=== PATIENT | male | born 1930 ===

== ENCOUNTER 2017-04-20 13:18 | Inpatient (IN) | payer MEDICARE ==
[~2017-04-20] VITALS: Ht 167.6 cm; Wt 50.0 kg
--- NOTE | ~2017-04-20 | ECH ---
Transthoracic Echocardiography Report (TTE) Demographics Patient Name UYEN TATUM Date of Study 04/21/2017 Patient Number [id number] Visit Number [id number] Date of 1930 Room Number 402 Accession Number [id number] Gender Male Age 86 year(s) Referring Michele Child Apartment House Manager Hannah Salomon [facility] Physician Randolph Jane MD Physician Interpreting Jorge Hayden Composing Room Machinist Apprentice Physician Supervising Ordering Physician Michele Child MD/P Nurse Stress Orchid Transplanter Conclusions Summary Technically adequate exam. The estimated left ventricular ejection fraction is 45%. Mild segmental wall motion abnormalities noted. Mild septal left ventricular hypertrophy. Mild mitral regurgitation by color Doppler. There is mild pulmonary hypertension. The pulmonary pressure (RVSP) is 42 mmHg. Trivial pulmonic valve regurgitation by color Doppler. Small pericardial effusion. Procedure Type of Study TTE procedure:Echo Complete SF. Procedure Date Date: 04/21/2017 Start: 07:29 AM Technical Quality: Adequate visualization Indications:Congestive heart failure and Hypertension. Additional Indications:ELevated proBNP, ESRD Appropriate Use Criteria: 9 Height: 66 inches Weight: 122 pounds BSA: 1.62 m Rhythm: Within normal limits HR: 67 bpm BP: 142/70 mmHg M-Mode/2D Measurements LV Diastolic Dimension: 4.9 cm LV Systolic Dimension: 3.92 cm LV Septum Diastolic: 1.13 cm LV PW Diastolic: 1.03 cm AO Root Dimension: 2.38 cm Cardiac Output: 2.19 l/min LA Dimension: 3.99 cm Cardiac Index: 1.35 l/min*m RV Diastolic Dimension: 2.9 cm LA volume index: 32 ml/m LVOT: 1.76 cm LVOT VTI: 13.47 cm RV Base: 2.7 cm LV Stroke volume: 32.75 ml RV Mid: 2.2 cm LV Stroke volume index: 20.22 ml/m RV Length: 6.2 cm TAPSE: 3.3 cm TDI-S': 12 cm/s Doppler Measurements AV Peak Velocity: 1.1 m/s MV Peak E-Wave: 0.88 m/s AV Peak Gradient: 4.84 mmHg MV Peak A-Wave: 0.57 m/s AV Mean Gradient: 2.88 mmHg MV E/A Ratio: 1.56 LVOT Peak Velocity: 0.61 m/s MV P1/2t: 61.7 msec AV Area (Continuity):1.51 cm MV Deceleration Time: 211.3 msec TR Velocity:3.11 m/s MV Area (PHT): 3.57 cm TR Gradient:38.69 mmHg PV Peak Velocity: 1 m/s Estimated RAP:3 mmHg PV Peak Gradient: 3.99 mmHg Estimated RVSP: 42 mmHg Estimated PASP: 41.69 mmHg E' Septal Velocity: 0.4 m/s A' Septal Velocity: 0.8 m/s E' Lateral Velocity: 0.7 m/s A' Lateral Velocity: 0.6 m/s RA Area: 14.1 cm Findings Left Ventricle The left ventricle is normal in size . Mild septal left ventricular hypertrophy. Diastolic assessment reveals normal relaxation. Right Ventricle Normal right ventricle structure and function. Left Atrium Normal left atrial size. Right Atrium Normal right atrial size. Mitral Valve Mild thickening of the mitral valve leaflets. Mild mitral regurgitation by color Doppler. Aortic Valve The aortic valve is mildly sclerotic. There is no aortic regurgitation by color Doppler. Tricuspid Valve Normal appearing tricuspid valve. Mild tricuspid regurgitation by color Doppler. There is mild pulmonary hypertension. The pulmonary pressure (RVSP) is 42 mmHg. Pulmonic Valve Normal pulmonic valve structure and function. Trivial pulmonic valve regurgitation by color Doppler. Pericardial Effusion Small pericardial effusion. Miscellaneous Visualized portions of the aortic root and ascending aorta appear normal in size. Pleural Effusion No evidence of pleural effusion. Contractility Score LV regional wall motion:(0-Non visualized 1-Normal 2-Hypokinesis 3-Akinesis 4-Dyskinesis 5-Aneurysm) Signature
--- NOTE | ~2017-04-20 | CO ---
ADMIT: 04/20/2017 RM/LOC: 402 [facility] MR#: [id number] [address] [place], [place] [address] UYEN TATUM [address] [place] [address] Consultation Report SEX: M AGE: 86 : 1930 Corrected: 04/22/2017 0501 njv DATE OF CONSULTATION: 04/21/2017 ATTENDING PHYSICIAN: Isaiah Bautista CONSULTING PHYSICIAN: Ady Cedeno MD HISTORY OF PRESENT ILLNESS: The patient is an 86-year-old male who I was asked to see today due to presenting with shortness of breath and anemia. He has been seen by Cardiology and our nephrologists due to recent onset of acute- on-chronic renal failure requiring dialysis. At the time of his admission, he was found to have a hemoglobin, I believe, of 6.3. He stools were heme- checked and they were heme-positive. He denies seeing any melenic or bloody stools. Did not mention that he does have a history of polyps and has not had a colonoscopy since that time, it was about apparently 5 years ago. ?He denies family history of colon cancer. PAST MEDICAL HISTORY: Includes end-stage renal disease and congestive failure. Additional past medical history includes hypertension. PAST SURGICAL HISTORY: Includes partial nephrectomy, appendectomy. MEDICATIONS: Include; 1. Cozaar. 2. Coreg. 3. Lipitor. 4. NovoLog. 5. Phosphate. 6. Protonix. 7. Nitroglycerin. 8. NovoLog insulin. SOCIAL HISTORY: He is a nondrinker, nonsmoker. FAMILY HISTORY: No colon cancer. REVIEW OF SYSTEMS: He has had some fatigue and shortness of breath. No cough. No chest pain. No abdominal discomfort. No melena or hematochezia. No extremity complaints. No neurologic or psychiatric issues. Hematology jennings, he has had anemia. PHYSICAL EXAMINATION: VITAL SIGNS: He is alert and oriented x3. No acute distress. NECK: Apparently might have a slight carotid bruit on the right side. No JVD. HEART: Regular. LUNGS: Clear. ADMIT: 04/20/2017 RM/LOC: 402 [facility] MR#: [id number] [address] [address] CANOSAXAVIERO NIDA [address] [place] [address] Consultation Report SEX: M AGE: 86 : 1930 ABDOMEN: Soft, nondistended, and nontender. EXTREMITIES: He had no peripheral edema. NEURO: No focal neurologic deficits. ASSESSMENT AND PLAN: The patient is an 86-year-old male who presents with shortness of breath, fatigue, anemia with heme-positive stools with a history of polyps. We have been asked to see for colonoscopy surveillance. He has not noted any clinical evidence of gastrointestinal blood loss. Plan is for bowel preparation and colonoscopy surveillance hopefully tomorrow morning. Risks and benefits were discussed. Ady Cedeno MD/ espinoza JOB #: [id number] CC: Isaiah Bautista, Attending Physician Isaiah Bautista, Family Physician Corrected: 04/22/2017 0501 njspencer
--- NOTE | 2017-04-22 14:17 | HP ---
ADMIT: 04/20/2017 RM/LOC: 402 [facility] MR#: [id number] ACC#: [id number] [address] [facility] [address] [place], [place] [address] UYEN TATUM [address] [place] [address] History and Physical SEX: M AGE: 86 : 1930 DATE OF SERVICE: CONSULTING PHYSICIAN: Dr. Andrew, Nephrology [facility]; Cardiology; and Surgery group. The patient is a [facility] patient. CHIEF COMPLAINT: Fatigue, weakness, and need for dialysis. CLINICAL HISTORY: The patient is an 86-year-old [place] male, who just arrived in [place] after a two-day car drive from [place], [place] with his daughter. His daughter went down and picked he and his up on 04/18/2017, and transported him via automobile to [place] where she lives because her parents are elderly and were unable to care for themselves at home. The patient as noted is a [place] refugee who has been living in [place] for the last 2 years since 2014. Prior to that, his healthcare had been in [place], he recently was hospitalized at the [facility] in [place], [place], being admitted on 04/04/2017, admitted then with shortness of breath and congestive heart failure. He was found to have end-stage renal disease, and was started on dialysis during that hospitalization, he also was found to have a non-STEMI, acute myocardial infarction, and underwent heart catheterization, and according to his daughter had three stents placed at that time. Since that hospitalization, he has been doing outpatient dialysis and has gone in on 4 occasions for dialysis with his last dialysis having been on 04/17/2017. Upon arriving back in [place], his daughter felt she needed to bring him to the ER so that he could get dialysis arranged since no arrangements have been made for his ongoing dialysis therapy when they left [place]. In addition, when they left [place], they did not get any of his medications. He has been off Plavix and off insulin for the last 2 days. On presentation to the ER, he was complaining of fatigue and weakness. Lab work was obtained in the ER, which revealed his hemoglobin to be down to 6.3, which we noted during his last hospitalization. During his hospitalization earlier this month, his hemoglobin was 9.2. Because of the drop in hemoglobin from 9.2 to 6.3, a stool Hematest was performed and he was found to be Hematest positive on his stools, although they have not noted any melena or hematochezia in the last several days. In view of his significant anemia with possible GI blood loss as well as his possible unstable cardiac status and need for dialysis in the near future, it was felt best to admit at this time. Should note that he did have a temporary dialysis catheter placed while he was in the hospital earlier this month. His daughter also notes that he did have a history of previous GI bleed about five years ago while he was living in [place]. At that time, he had a colonoscopy and he had a couple of polyps removed. He was told that he needed another followup colonoscopy in 3 years, but never had that performed. As noted, admitted at this time with what appears to be an acute blood loss anemia superimposed on anemia of chronic disease also with significant end-stage renal failure needing dialysis and possible unstable cardiac status due to recent discontinuation of his usual medications. Admitted at this time for monitoring of hemodynamics status and transfusion as well as for further Nephrology, Cardiology, and Surgery ADMIT: 04/20/2017 RM/LOC: 402 [facility] MR#: [id number] [facility] [address] UYEN TATUM [address] [place] [address] History and Physical SEX: M AGE: 86 : 1930 consultations. PAST MEDICAL HISTORY: RECENT HOSPITALIZATIONS: He was hospitalized from 04/04/2017 through 04/11/2017 in [place]. At that time, he did have heart catheterization performed and temporary dialysis catheter placed and he was started on dialysis therapy. He had gone in with congestive heart failure which was felt to be due to volume overload because of his renal disease. He has had no other recent hospitalizations. As noted, up until two years ago, his healthcare was delivered in [place]. PREVIOUS OPERATIONS: Include an appendectomy in 1956, a partial nephrectomy in 1956 for unclear reasons, and additional partial nephrectomy in 1987 for unclear reasons, and a colonoscopy in 2011. CURRENT MEDICATIONS: 1. According to the records that accompanied the patient, his current medications include atorvastatin 80 mg one daily at bedtime. 2. Losartan 50 mg daily for hypertension. 3. Calcium acetate 667 mg #2 tabs three times a day. 4. Coreg 3.125 mg twice a day. 5. Lidocaine patch p.r.n. 6. Plavix 75 mg one daily which apparently he has not been taking. 7. He also is on a basal insulin which they are unsure whether it was Lantus or Levemir once daily. ALLERGIES: HE IS ALLERGIC TO PENICILLIN, IODINE, AND ASPIRIN. SOCIAL HISTORY: The patient has no history of alcohol abuse. He does not drink. He is a nonsmoker. He has no history of illicit drug use. 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 He immigrated from [place] in 2014. FAMILY HISTORY: He is unaware of any significant family history. There is no prior family history of renal failure or significant cardiac disease. MEDICAL ILLNESSES: His medical illnesses include: 1. End-stage renal disease, on hemodialysis. 2. Atherosclerotic coronary vascular disease, status post recent heart catheterization with PCI and stent placement x3. 3. Type 2 diabetes. 4. History of nephrolithiasis. REVIEW OF SYSTEMS: CONSTITUTIONAL: The patient complains of fatigue, tiredness, weakness, poor activity tolerance. Appetite has been fair. He has had recent weight loss. HEENT: No upper respiratory congestion. No new eye, ear, nose, or throat complaints. PULMONARY: He has had some shortness of breath in the past few weeks, this has been primarily with lying down. He has a fairly good history for ADMIT: 04/20/2017 RM/LOC: 402 [facility] MR#: [id number] [address] [facility] [address] [place], [place] [address] UYEN TATUM [address] [place] [address] History and Physical SEX: M AGE: 86 : 1930 orthopnea. No cough or sputum production. CARDIAC: Prior to his admission on 04/04/2017, he has been having chest pain off and on for months. Since placement of his stents, he has had no recurrence of chest pain. He denies any history of significant arrhythmias. GASTROINTESTINAL: Past history of GI bleed. He denies nausea or dyspepsia. Denies any melena or hematemesis. Has had previous polyps of the colon. GENITOURINARY: History of kidney stones. History of unknown renal disease or renal condition for which they did partial bilateral nephrectomies. Notes he has had kidney problems since childhood. MUSCULOSKELETAL: Some generalized arthritic discomfort. NEUROLOGIC: No history of strokes, seizures, or TIAs. ENDOCRINE: He is a type 2 diabetic. He has been treated for his diabetes for approximately 15 years. HEMATOLOGIC: History of chronic anemia associated with his renal disease. PHYSICAL EXAMINATION: VITAL SIGNS: At this time, temp is 97.4, pulse 83, respirations 16, blood pressure 148/64, O2 saturation 95%. Current weight 122 pounds. GENERAL: The patient is a very thin frail 86-year-old [place]an male, in no acute distress. He is awake and alert. Responds appropriately to questions. He does not understand Fijian. His daughter serves as an corporate communications associate. HEENT: Reveals extraocular movements to be intact. Pupils are equal and reactive. Sclerae nonicteric. His nose and throat today are noninflamed. Oropharynx is normal. Both vision and hearing are grossly intact. NECK: Supple with no significant neck vein distention at this time. Carotid pulses are full and symmetrical without bruits. LUNGS: Noted to be clear anteriorly. He is a little diminished in the bases. I cannot appreciate any rales at this time. HEART: Noted to have a regular rhythm. No murmurs. No lifts, thrills, or heaves. ABDOMEN: Soft, nontender, nondistended. No organomegaly. Bowel sounds are normoactive. Genitalia normal male. EXTREMITIES: Noted to have no peripheral edema. No clubbing or cyanosis. No calf tenderness. NEUROLOGICAL: He is intact with no focal deficit. Balance is normal. Gait is steady. Cranial nerves II through XII are grossly intact. INTEGUMENT: No significant rashes or skin lesions noted. LABORATORY DATA: His pre-admission laboratory work included a CBC, which shows a white count of 7700, hemoglobin 6.3, hematocrit 20.5, and platelets were normal at 200,000. Sodium was 139, potassium 4.0, BUN is 48, creatinine 5.7. His blood sugar in the ER was 145. Stools are noted to be Hematest positive. ASSESSMENT AT THE TIME OF ADMISSION: 1. Acute anemia, superimposed on anemia of chronic disease. 2. Hematest positive stools, suspect possible GI bleed. 3. End-stage renal disease, recently started on hemodialysis. ADMIT: 04/20/2017 RM/LOC: 402 [facility] MR#: [id number] [address] [address] XAVIER TATUMO NIDA [address] [place] [address] History and Physical SEX: M AGE: 86 : 1930 4. Atherosclerotic coronary vascular disease, status post recent heart catheterization with PCI and stents x3. 5. Type 2 diabetes, insulin dependent. 6. Hyperlipidemia. 7. Hypertension. 8. Diabetic peripheral neuropathy. PLAN: Plan is to admit the patient for monitoring of his hemodynamics status. We will transfuse with 2 units of packed cells. In view of his severe anemia, we will ask Dr. Andrew to see in consultation for his end-stage renal disease. We will ask [facility] Cardiology to consult given his recent acute cardiac event and need for anti-platelet therapy. In view of possible GI bleed, we will also get Surgery group involved, probably he will need both EGD and colonoscopy to evaluate further for GI blood loss. Isaiah Bautista MD/ espinoza JOB #: [id number] CC: Isaiah Bautista, Attending Physician Isaiah Bautista, Family Physician
--- NOTE | 2017-04-24 16:46 | ER ---
ADMIT: 04/20/2017 RM/LOC: 402 [facility] MR#: [id number] [address] [address] UYEN TATUM [address] [place] [address] Emergency Room Report SEX: M AGE: 86 : 1930 DATE: 04/20/2017 HISTORY OF PRESENT ILLNESS: The patient is an 86-year-old male, brought in for evaluation of his symptoms. He is supposed to have had dialysis yesterday. He is a diabetic. His daughter says that he does not have his medications with him. He did not take his insulin yesterday. He just arrived from [place], moved up to the [facility] to live with his daughter, who will be able to take care of him. He had had a catheter placed on 04/06 and just got to GI. REVIEW OF SYSTEMS: Otherwise negative. PAST MEDICAL HISTORY: 1. Diabetes type 2. 2. Kidney stones. 3. Hyperlipidemia. PAST SURGICAL HISTORY: Stents. Had an appendectomy. MEDICATIONS: 1. Atorvastatin. 2. Carvedilol. 3. Lidocaine patch. 4. Losartan. 5. Calcium acetate. ALLERGIES: ALLERGIC TO PENICILLIN, ASPIRIN, AND IODINE. PHYSICAL EXAMINATION: GENERAL: Pale looking, thin male. VITAL SIGNS: Blood pressure 146/52, heart rate is 66, respirations 18, temp is 97.6, and O2 sats 100%. Mildly anxious. HEENT: Normal inspection. NECK: Supple. RESPIRATIONS: No distress. CVS: Regular in rate and rhythm. ABDOMEN: Nontender. BACK: Normal inspection. SKIN: Pale. EXTREMITIES: No edema. NEUROLOGIC: Oriented x4. ADMIT: 04/20/2017 RM/LOC: 402 [facility] MR#: [id number] [address] [place] [address], [place] [address] UYEN TATUM [address] [place] [address] Emergency Room Report SEX: M AGE: 86 : 1930 LABORATORY DATA: Hemoglobin 6.3, compared to hemoglobin done on April 07, which was 9.3 and hematocrit today is 20.3. Hemoccult positive. Blood sugar 146. BUN 48, creatinine is 5.7 with a proBNP of 45,108. IV placed. Two units of blood to the process for transfusion. CLINICAL IMPRESSION: 1. Anemia. 2. Congestive heart failure. 3. Renal failure. Occult blood positive. Dr. Bautista contacted for admission due to [facility] patient. He is going to need a nitroglycerin supervisor in town and set up for his dialysis therapy. FROYLAN Lieberman / Alexis Valles MD / modl JOB #: [id number] CC: Isaiah Bautista MD, Attending Physician Isaiah Bautista MD, Family Physician
--- NOTE | 2017-04-25 10:38 | CO ---
ADMIT: 04/20/2017 RM/LOC: 402 [facility] MR#: [id number] [address] [place], [place] [address] UYEN TATUM [address] [place] [address] Consultation SEX: M AGE: 86 : 1930 DATE OF CONSULTATION: 04/21/2017 ATTENDING PHYSICIAN: Isaiah Bautista CONSULTING PHYSICIAN: Fei Dickson MD REASON FOR CONSULTATION: Shortness of breath, anemia, and non-STEMI on 04/04/2017. Anti-platelet therapy currently on hold for anemia. HISTORY OF PRESENT ILLNESS: The patient is an 86-year-old Mohit male, presenting with shortness of breath. He denies any chest pain. He does not report any light headedness, dizziness, or palpitations. The patient is found to be severely anemic. No obvious source of bleeding, as he denies rectal bleeding or dark black stools, visible blood in the urine, bloody cough. The patient does have a recent history of a PCI from a non-STEMI on 04/04/2017. The patient was seen in [place] with an acute onset of shortness of breath and congestive heart failure. He was found to have end-stage renal disease, and was started on dialysis. When non-STEMI was found, he underwent heart catheterization, and three stents were placed. The patient was put on anti-platelet therapy following PCI. Anti-platelet therapy has been held due to marked anemia. The patient's most recent colonoscopy was noted five years ago in which he had multiple polyps, which were removed. He was supposed to have a followup colonoscopy in three years, which has not take place. At this time, the acute blood loss appears to be superimposed on anemia of chronic disease with significant end-stage renal failure. Labs done thus far include EKG: probable LVH; troponin 0.4 followed by 0.35 and 0.35. Creatine kinase negative. Hemoglobin 6.3. The patient's only cardiovascular risk factor is hyperlipidemia. Negative history of smoking history, drinking history, hypertension, diabetes, or family history of heart disease. PAST MEDICAL HISTORY: Significant illnesses: Anemia, end-stage renal disease, coronary artery disease with history of PCI, history of kidney stones. PAST SURGICAL HISTORY: Appendectomy, kidney stone removal, PCI with stents. ALLERGIES: PENICILLINS AND ASPIRIN. MEDICATIONS: Scheduled medications: Coreg 3.125 mg p.o. b.i.d. Cozaar 50 mg p.o. daily Lipitor 40 mg p.o. at bedtime phosphate 667 mg p.o. t.i.d. NovoLog 100 unit low dose sliding scale nitroglycerin drip 250 mL IV UD Protonix IV 40 mg after 24 hours SOCIAL HISTORY: Negative for smoking history and alcohol history. OCCUPATION: Retired. MARITAL STATUS: . ADMIT: 04/20/2017 RM/LOC: 402 [facility] MR#: [id number] [address] [place], [place] [id number] [place] [address] [address] [place] [address] Consultation SEX: M AGE: 86 : 1930 REVIEW OF SYSTEMS: GENERAL: The patient denies tiring easily or recent fever or chills. He does report a 30 pound weight loss over the past year. EYES: Positive for cataract removal. Negative for blurry vision, loss of vision, or glaucoma. THROAT, MOUTH, AND EARS: Negative for chronic problems with no sinus, throat, hearing or ears. RESPIRATORY: Positive for snoring loudly. Negative for waking up short of breath or in the middle of the night more than once, feeling tired in the a.m. Negative for COPD, asthma, wheezing, chronic cough, or bloody sputum. GASTROINTESTINAL: Negative for heartburn, acid reflux, difficulty swallowing, hiatal hernia, stomach ulcer, rectal bleeding, dark black stools, gallbladder problems or liver disease. GENITOURINARY TRACT: Positive for history of kidney stones and kidney failure. Negative for blood in urine problems with urination or history of UTIs. MUSCULOSKELETAL: Negative for arthritis or gout. ENDOCRINE: Negative for thyroid problems. HEMATOLOGY/LYMPHATIC: Positive for anemia and bleeding problems. Negative for cancer. NEUROLOGIC: Negative for chronic headaches, stroke, seizure disorder, numbness or tingling. PSYCHIATRIC: Positive for depression. Negative for mental illness or depression. PHYSICAL EXAMINATION: GENERAL: Alert and oriented x3. No acute distress. NECK: Right internal carotid artery bruit. No JVD. HEART: Distant regular. LUNGS: Clear to auscultation. No crackles. ABDOMEN: Firm. Nontender. Positive bowel sounds. EXTREMITIES: No edema. LABORATORY DATA: Hemoglobin 6.3. Creatine kinase is negative. Troponin 0.4, 0.35, and then 0.35. ADMIT: 04/20/2017 RM/LOC: 402 [facility] MR#: [id number] [address] [address] XAVIER TATUMO NIDA [address] [place] [address] Consultation SEX: M AGE: 86 : 1930 ASSESSMENT: 1. Saqnj-bj-lyuqgnf anemia. 2. End-stage renal disease, recent dialysis. 3. Coronary artery disease. 4. Recent PCI for history of kidney stones. 5. Equivocal troponin. RECOMMENDATIONS: Troponin elevation is indeterminate. No chest pain, and had recent PCI. I have low suspicion for acute coronary syndrome. I am more concerned about the need for dual anti-platelet therapy, given recent PCI and now worsening anemia. The patient should resume some form of anti-platelet therapy as soon as possible. Awaiting records from [place]. FROYLAN Avila Student / Fei Dickson MD / espinoza JOB #: [id number] CC: Isaiah Bautista, Attending Physician Isaiah Bautista, Family Physician
[2017-04-25] MEDS ORDERED: LIPITOR80 MG PO (21:10)
[2017-04-25] MEDS ORDERED: PHOS-LO667 MG PO (21:11)
[2017-04-25] MEDS ORDERED: COZAAR DPS50 MG PO (21:11)
[2017-04-25] MEDS ORDERED: LIDOPATCH1 EACH TD (21:12)
[2017-04-25] MEDS ORDERED: PLAVIX75 MG PO (21:12)
[2017-04-25] MEDS ORDERED: PROTONIX40 MG PO (21:12)
[2017-04-25] MEDS ORDERED: COREG DPS6.25 MG PO (21:12)
[2017-04-25] MEDS ORDERED: CARAFATE DPS1 GM PO (21:12)
[2017-04-25] MEDS ORDERED: TYLENOL DPS325 MG PO (21:13)
[2017-04-25] MEDS ORDERED: NITROSTAT0.4 MG SL (21:13)
[2017-04-25] MEDS ORDERED: LEVEMIR100 UNIT/1 SQ (21:13)
--- NOTE | 2017-04-26 15:28 | OR ---
ADMIT: 04/20/2017 RM/LOC: 402 [facility] MR#: [id number] [facility]#: [id number] 2620 [facility] [address] [place], [place] [address] UYEN TATUM [address] [place] [address] Operative/Delivery Room Report SEX: M AGE: 86 : 1930 SURGERY DATE: 04/23/2017 SURGEON: Zachery Nugent MD PREOPERATIVE DIAGNOSIS: Anemia. POSTOPERATIVE DIAGNOSES: 1. Ascending colon polyp. 2. Anemia. PROCEDURE: Complete colonoscopy with snare cautery polypectomy. ANESTHESIA: IV general. FINDINGS: Ascending colon polyp 1 cm in diameter. The prep was poor with solid stool throughout the proximal and distal colon. No obvious masses were visualized; however, the polyp, 1 cm in diameter, was seen well. No signs of blood throughout the entire colon. DESCRIPTION OF PROCEDURE: The patient was taken to the endoscopy suite and placed left side down on his hospital cart. IV sedation was established. Rectal exam was performed, there were no palpable abnormalities. The flexible colonoscope was advanced under direct visualization through the entire colon to the cecum. The cecum was identified by its anatomic landmarks in the ileocecal valve. The prep was poor, again noted with solid stool throughout scattered throughout the colon. In the ascending colon, above the cecum, there was a 1 cm sessile adenomatous-appearing polyp which was removed in its entirety with snare cautery and retrieved with suction. The base of the polypectomy site was hemostatic upon completion. The remainder of the ascending colon, transverse colon, and descending colon showed no evidence of mass. Visual inspection, mucosa was approximately 70% or so given the residual stool. The scope was withdrawn to the rectum and this was unremarkable. Air was suctioned. The patient tolerated the procedure well and transferred to the recovery area in stable condition. Zachery Nugent MD/ espinoza JOB #: [id number] CC: Isaiah Bautista, Attending Physician Isaiah Bautista, Family Physician
--- NOTE | 2017-04-26 15:28 | OR ---
ADMIT: 04/20/2017 RM/LOC: 402 [facility] MR#: [id number] [facility]#: [id number] [address] [facility] [address] [place], [place] [address] UYEN TATUM [address] [place] [address] Operative/Delivery Room Report SEX: M AGE: 86 : 1930 SURGERY DATE: 04/24/2017 SURGEON: Zachery Nugent MD PREOPERATIVE DIAGNOSIS: Anemia of blood loss, gastrointestinal bleed. POSTOPERATIVE DIAGNOSES: 1. Deep duodenal ulcer without active bleeding. 2. Erosive gastritis. PROCEDURE: Esophagogastroduodenoscopy with biopsy. ANESTHESIA: IV general. DESCRIPTION OF PROCEDURE: The patient was taken to the endoscopy suite and placed left side down on his hospital cart. IV sedation was established. The upper endoscope was advanced through the oropharynx into the esophagus without difficulty. The scope was pushed under visualization of the stomach. Air was used to insufflate the stomach. The pylorus was intubated. In the post bulbar position, there was a deep duodenal ulcer without active bleeding. No biopsies of this were obtained because of risk for bleeding. The scope was withdrawn to the stomach. In the antrum, there was erosive gastritis, and biopsies at this level were obtained to evaluate for Helicobacter disease. On retroflexion of the scope, the gastric body, fundus, and cardia appeared normal. The scope was drawn the gastroesophageal junction which was normal in appearance as was the remainder of the esophageal mucosa upon withdrawal of the scope. The patient tolerated the procedure well and transferred to recovery in stable condition. Zachery Nugent MD/ mattiel JOB #: [id number] CC: Isaiah Bautista, Attending Physician Isaiah Bautista, Family Physician
--- NOTE | 2017-04-30 10:08 | CO ---
ADMIT: 04/20/2017 RM/LOC: 402 [facility] MR#: [id number] 2620 [facility] [address] [place], [place] [address] UYEN TATUM [address] [place] [address] Consultation SEX: M AGE: 86 : 1930 DATE OF CONSULTATION: 04/21/2017 ATTENDING PHYSICIAN: Isaiah Bautista CONSULTING PHYSICIAN: Chloé Andrew MD REASON FOR CONSULTATION: End-stage renal disease, on hemodialysis. HISTORY OF PRESENT ILLNESS: The patient is an 86-year-old Moh[place] male, who is Ukrainian speaking. This encounter was carried out with the help of an bridge carpenter. He reports having a history of kidney problems since he was younger. He is unclear of the nature and etiology of his kidney disease, but believes it is secondary to medications. He reports he is getting some sort of calcium source in his younger days. In any event, he moved to [facility] and he is a [place] refugee and has been living in [place] for about couple years. He had a hospitalization recently at [facility] with congestive heart failure. It was during that hospitalization earlier this month, that he was started on dialysis. He has been going to outpatient dialysis and reports that he has had about 3 or 4 sessions of dialysis. He reports being on the machine for 3 hours or so. His last dialysis was last week. He thinks it was on Friday although chart seems to indicate that it was on . He was brought here to [facility] by his daughter because she believed her parents were too weak to be taken care of. He has not had any dialysis since last week as mentioned above. His breathing is okay according to his report. He was noted to be anemic and he has received blood transfusion. He denies any ongoing anginal complaints. He feels weak, but otherwise no complaints whatsoever. REVIEW OF SYSTEMS: A complete review of systems is negative in detail except as mentioned in the history of present illness. PAST MEDICAL HISTORY: Per chart, he has a history of congestive heart failure, hypertension, and has also had a partial nephrectomy as well as an appendectomy. MEDICATIONS: Reviewed in the chart. ALLERGIES: PENICILLINS, IODINE, AND ASPIRIN. SOCIAL HISTORY: Originally from [place]. Denies any ongoing tobacco, alcohol, or recreational drug use. FAMILY HISTORY: No family history of chronic kidney disease or renal replacement therapy. Father had a malignancy. PHYSICAL EXAMINATION: VITAL SIGNS: Temperature 97.6 Fahrenheit, pulse 72, and blood pressure 143/58. GENERAL: He appears comfortable in bed. HEENT: Nontraumatic and normocephalic. Extraocular movements are intact. ADMIT: 04/20/2017 RM/LOC: 402 [facility] MR#: [id number] [facility] [address] [address] UYEN TATUM [address] [place] [address] Consultation SEX: M AGE: 86 : 1930 CHEST: Clear to auscultation. CVS: Regular. S1 and S2 heard. No rubs, murmurs, or gallops. ABDOMEN: Soft and nontender. EXTREMITIES: No edema. SKIN: No rash or nodules. NEUROLOGIC: He is alert and oriented. MUSCULOSKELETAL: Major joints within normal limits. Range of motion within normal limits. PSYCHIATRIC: Affect and memory within normal limits. ACCESS: Right IJ tunnel dialysis catheter. LABORATORY DATA: Reviewed. BMP with sodium 141, potassium 3.9, CO2 29, creatinine 6.0, BUN 52, and hemoglobin 8.2. ASSESSMENT/PLAN: 1. End-stage renal disease, on hemodialysis. 2. Hypertension. 3. Anemia. 4. Chronic kidney disease. I will attempt to obtain his records from his previous hospitalization. It sounds like this process is already underway. I will also try to get in touch with his outpatient dialysis unit to see if we can get any additional information on his previous history. I will check iron stores for his anemia and use iron/ERICKSON therapy as indicated. His blood pressure seems reasonable and his volume status is fair. I will provide him some ultrafiltration on hemodialysis. I will plan to dialyze him today and will follow him for his dialysis needs during this hospitalization. Thank you for this consultation. Please do not hesitate to contact me with any questions. Chloé Andrew MD/ espinoza JOB #: [id number] CC: Isaiah Bautista, Attending Physician Isaiah Bautista, Family Physician
--- NOTE | 2017-05-15 11:48 | CO ---
ADMIT: 04/20/2017 RM/LOC: 402 [facility] MR#: [id number] 2620 [facility] [address] [place], [place] [address] MEÑO TATUM [address] [place] [address] Consultation SEX: M AGE: 86 : 1930 DATE OF CONSULTATION: 04/21/2017 ATTENDING PHYSICIAN: Isaiah Bautista CONSULTING PHYSICIAN: Ady Cedeno MD REASON FOR CONSULTATION: Anemia, rule out gastrointestinal bleed. HISTORY OF PRESENT ILLNESS: Meño is a very pleasant 86-year-old male, who is Upper Sorbian speaking, originated from [place], who has just moved to [place] several days ago after being at the hospital in [place]. Apparently, at that time, he underwent heart catheterization x3. When he arrived to [place], he was found to be anemic with hemoglobin somewhere around 6. He received blood products at that time. He is now been admitted for further workup of this anemia. Currently, the patient denies any pain, nausea, vomiting, or bowel changes. He denies any dark or bloody stools. However, while in the ER, he tested positive for occult blood. He does not recall ever having endoscopy done, however, he does state a history of polyps. He was on blood thinners in the hospital in [place], but currently has been taking Plavix for the last several weeks. He denies taking any other blood thinning medications. Of note, he does state dizziness when he goes from a lying to a sitting position, but denies any shortness of breath or weakness. He has noticed weight loss in the last four years. Exactly how much weight he has lost, he is unsure. PAST MEDICAL HISTORY: Significant for; 1. Chronic kidney disease. 2. Coronary artery disease. 3. Hypertension. 4. Type 2 diabetes. 5. Nephrolithiasis. PAST SURGICAL HISTORY: 1. Unsure of endoscopy, but he has been told he has polyps. Please see HPI. 2. Appendectomy in the 1950s. 3. Partial nephrectomy x2. 4. Heart catheterization x3. ALLERGIES: IODINE, ASPIRIN, AND PENICILLIN. MEDICATIONS: Again, the patient has been taking Plavix. Full list is documented in chart. FAMILY HISTORY: Noncontributory. SOCIAL HISTORY: The patient denies any smoking or alcohol use. REVIEW OF SYSTEMS: CONSTITUTIONAL: The patient denies any fever, chills, or night sweats. The rest of comprehensive 10-point review of systems was ADMIT: 04/20/2017 RM/LOC: 402 [facility] MR#: [id number] [address] [place] [address] [address] MEÑO TATUM [address] [place] [address] Consultation SEX: M AGE: 86 : 1930 performed and all other systems are negative. PHYSICAL EXAMINATION: GENERAL: The patient is in no acute distress. He is alert and oriented. HEENT: Head is normocephalic and atraumatic. EOMS are intact. Conjunctivae free of icterus, erythema, or pallor. Pinnae, free of deformities. Nose, midline. No tracheal deviation. NECK: Supple. SKIN: Negative for jaundice, clubbing, edema, pallor, or cyanosis. LUNGS: Normal respiratory effort. HEART: Distal pulses intact. Regular rate and rhythm. ABDOMEN: Soft, nondistended, and nontender. ASSESSMENT: Anemia. PLAN: Currently, he is being worked up by Cardiology. Given his occult blood, we will proceed with colonoscopy tomorrow, so I will get him prepped and consented for this procedure today. We discussed the risks, alternatives, benefits, and complications of endoscopy to which the patient is in agreement of this plan, had all his questions answered and would like to proceed. Thank you for the consultation of this patient. FROYLAN Rajan / Ady Cedeno MD / espinoza JOB #: [id number] CC: Isaiah Bautista, Attending Physician Isaiah Bautista, Family Physician
--- NOTE | 2017-06-04 13:37 | DS ---
ADMIT: 04/20/2017 RM/LOC: 402 [facility] MR#: [id number] 2620 [facility] [address] [place], [place] [address] UYEN TATUM [address] [place] [address] General Discharge Summary SEX: M AGE: 86 : 1930 ADMISSION DATE: 04/20/2017 DISCHARGE DATE: 04/25/2017 CONSULTING PHYSICIAN: 1. Dr. Cedeno, Surgery Group. 2. Dr. Felix Dickson, Cardiology. ADMITTING DIAGNOSIS: As per history and physical. FINAL DIAGNOSES: As follows: 1. Acute blood loss anemia superimposed on anemia of chronic disease. 2. Acute duodenal ulcer with hemorrhage. 3. End-stage renal disease, on hemodialysis. 4. Llo-LS-qsbzbvtrw myocardial infarction. 5. Acute post hemorrhagic anemia. 6. Chronic gastritis with associated duodenal ulcer. 7. Benign polyp of the colon. 8. Ischemic cardiomyopathy. 9. Type 2 diabetes with chronic kidney disease. 10.Diabetic peripheral neuropathy. 11.Diabetic nephropathy. 12.Hyperlipidemia. 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 14.Atherosclerotic coronary vascular disease. 15.Ongoing hemodialysis. 16.Major depressive disorder. COMPLICATIONS: None. OPERATIONS: 1. The patient had colonoscopy with removal of a polyp from the ascending colon on 04/23/2017. 2. The patient had EGD on 04/24/2017. 3. The patient had inpatient hemodialysis. He also had a transfusion with packed cells on 04/20/2017. CLINICAL HISTORY: Mr. Tatum is an 86-year-old Marshallese male, admitted to [place] after presenting to the ER because of weakness and general debility. The patient's family had just brought him from [place] having driven from [place] to [place] over the 2 days prior to his admission having left [place] on 04/18/2017. Upon arrival in [place], his daughter brought him directly to the hospital because he needed hemodialysis. The patient recently was started on hemodialysis and missed dialysis on 04/18/2017. He has a history of chronic kidney disease, stage 5. He also has had recent hospitalization in [place] with an acute non-STEMI DC. He underwent heart catheterization and placement of stents then. It was during that admission that he was also started on hemodialysis. The patient upon presentation to the ER was noted to have severe anemia with a hemoglobin of 6.3 and hematocrit of 20. In the ER, records that they had with him, showed his hemoglobin in ADMIT: 04/20/2017 RM/LOC: 402 [facility] MR#: [id number] [address] [address] UYEN TATUM [address] [place] [address] General Discharge Summary SEX: M AGE: 86 : 1930 [place] a few days before had been 9.2. In view of his acute anemia and need for urgent dialysis, it was felt best to admit the patient and pursue further Nephrology consultation as well as further Cardiology consultation in view of his recent PTCA and with placement of stents. For further details of his clinical history as well as past medical history and pertinent findings on physical exam, please see dictated history and physical. Also, see dictated Nephrology consult and dictated Cardiology consult as well as dictated surgical consult. LABORATORY AND X-RAY SUMMARY FROM THIS ADMISSION: His initial CBC done in the ER showed a white count of 7700, hemoglobin of 6.3, hematocrit 20.5. He was then transfused with 2 units of packed cells. Hemoglobin on 04/21/2017, was 8.2, hematocrit 26.1. He was then transfused with another unit of packed cells and hemoglobin on 04/22/2017 was 10.1. CBCs were monitored daily and at discharge, his white count was 6900, hemoglobin 9.8, hematocrit 31.6. The patient was noted to be having Hematest positive stools during this hospitalization and was felt to have had an acute GI bleed superimposed on his anemia of chronic disease. On admission, his sodium was 139, potassium 4.0, BUN was 48 with a creatinine of 5.7. Blood sugar was 145. BMPs were monitored daily during the hospital stay as Dr. Andrew managed his renal failure with hemodialysis. At discharge, his sodium was 140, potassium 4.4, BUN was 33 with a creatinine of 5.7. Fingerstick blood sugars were monitored q.i.d. because of his diabetes. His diabetes was controlled with sliding scale insulin during this hospital stay. Blood sugars ranged from a low of 93 to a high of 214 during this hospitalization. His serum ferritin was high at 577. Hemoglobin A1c was elevated at 6.7. Hepatitis B surface antigen was negative. Hepatitis C antibody was negative. HIV was negative. Hepatitis B core antibody was negative. The patient was transfused with 3 units of packed cells during this hospitalization. He is given 2 units on 04/20/2017 and a third unit on 04/21/2017. The blood type is noted to be O positive with a negative antibody screen. X-ray studies included a chest x-ray in the ER, which showed a trace of left pleural effusion. Otherwise, lung valentin were clear. His echocardiogram done during this hospitalization showed an EF of only 45%. Mild mitral regurgitation. Mild pulmonary hypertension. Pulmonic valve regurgitation. No regional wall motion abnormalities noted, but did have diminished EF of only 45%. His EKG showed a sinus rhythm with changes of LVH and diffuse nonspecific ST-T wave changes consistent with left ventricular hypertrophy. HOSPITAL COURSE: The patient was admitted with what was felt to be an acute blood loss anemia superimposed on his chronic anemia. Stools were Hematest positive and for this reason, Surgery consult was obtained. Dr. Andrew was consulted on admission because of the need for inpatient hemodialysis. Cardiology was consulted because of his history of recent PCI with stent placement and the need to take him off anticoagulation given his GI bleeding. The patient was seen by the multiple consultants. He was treated for suspected peptic ulcer disease with IV Protonix drip. [facility] Cardiology saw him in consult and helped manage his cardiac status. Dr. Andrew managed his ADMIT: 04/20/2017 RM/LOC: 402 [facility] MR#: [id number] 2620 [facility] [address] [place], [place] [address] UYEN TATUM [address] [place] [address] General Discharge Summary SEX: M AGE: 86 : 1930 inpatient hemodialysis. The patient had no significant cardiac issues during his hospital stay. We did transfuse him with 3 units of packed cells. Per Cardiology's recommendation, he was placed back on Plavix once we were sure the he was not actively bleeding. Surgery saw him in consult and he did have both colonoscopy and an EGD done during this hospitalization. His colonoscopy did reveal a polyp which was removed, which was benign. His EGD did show a duodenal ulcer with evidence of recent bleed. He tolerated his hemodialysis well. He felt much better after he was transfused with the 3 units of packed cells. He had no active GI bleeding during the remainder of the hospitalization. Ultimately, it was felt that he was stable enough to dismiss to home and continue outpatient hemodialysis. At discharge, arrangements were made for him to have hemodialysis per the supervision of Dr. Andrew. He also was to follow up with [facility] Cardiology and was given a followup appointment at our office as well. It was felt that the duodenal ulcer had been the source of his GI blood loss. He was dismissed to home on 04/25/2017. MEDICATIONS: Medications at that time were to include: 1. Carafate 1 g t.i.d. 2. Coreg 6.25 mg b.i.d. 3. Cozaar 50 mg daily. 4. Lipitor 80 mg daily. 5. PhosLo 667 mg two t.i.d. 6. Plavix 75 mg daily. 7. Protonix 40 mg once daily. 8. Maalox p.r.n. indigestion. 9. Tylenol p.r.n. minor discomfort. 10.Nitrostat sublingual p.r.n. chest pain. 11.Levemir 15 units at bedtime for his diabetes. He is to have his dialysis on Friday, Friday, and Friday at the dialysis center. Dr. Andrew will follow up with him there. He is to have blood sugars monitored 2 to 3 times a day at home. CONDITION AT DISCHARGE: Stable and improved. PROGNOSIS: Long-term prognosis is poor in view of his end-stage renal disease and significant coronary artery disease. The patient will follow up in our office in 5 to 7 days with labs at that time to include CBC and a BMP. Isaiah Bautista MD/ espinoza JOB #: [id number] CC: Isaiah Bautista MD, Attending Physician Isaiah Bautista MD, Family Physician
[2017-06-13] MEDS ORDERED: CRESTOR20 MG PO (16:03)
[2017-06-13] MEDS ORDERED: CARVEDILOL3.125 MG PO (16:03)
[2017-06-13] MEDS ORDERED: COZAAR DPS50 MG PO (16:03)
[2017-06-13] MEDS ORDERED: LIDOPATCH1 EACH TD (16:04)
[2017-06-13] MEDS ORDERED: NOVOLOG100 UNIT/2 SQ (16:04)
[2017-06-13] MEDS ORDERED: RENVELA800 MG PO (16:05)
[2017-06-13] MEDS ORDERED: NORCO 5-325 TA1 EACH PO (16:05)
[2017-06-13] MEDS ORDERED: ZYRTEC DPS10 MG PO (16:06)
[2017-06-13] MEDS ORDERED: PROTONIX40 MG PO (16:06)
[2017-06-13] MEDS ORDERED: NITROSTAT0.4 MG SL (16:06)
[2017-06-13] MEDS ORDERED: CARAFATE DPS1 GM PO (16:07)
== END 2017-04-25 17:10 | disposition home or self-care (01) | DRG 377 ==
LOC: ER 13:18 → 4PCU 16:50
PROVIDERS: ADMIT Family Medicine
PROC: 30233N1 Transfusion of Nonautologous Red Blood Cells into Peripheral Vein, Percutaneous Approach (ICD-10-PCS; 2017-04-20)
PROC: 5A1D60Z (ICD-10-PCS; 2017-04-21)
PROC: 0DBK8ZX Excision of Ascending Colon, Via Natural or Artificial Opening Endoscopic, Diagnostic (ICD-10-PCS; principal; 2017-04-23)
PROC: 0DB78ZX Excision of Stomach, Pylorus, Via Natural or Artificial Opening Endoscopic, Diagnostic (ICD-10-PCS; 2017-04-24)
DX: K26.0 Acute duodenal ulcer with hemorrhage (principal); N18.6 End stage renal disease; I21.4 Non-ST elevation (NSTEMI) myocardial infarction; I13.2 Hypertensive heart and chronic kidney disease with heart failure and with stage 5 chronic kidney disease, or end stage renal disease; D62 Acute posthemorrhagic anemia; I50.42 Chronic combined systolic (congestive) and diastolic (congestive) heart failure; K29.60 Other gastritis without bleeding; K63.5 Polyp of colon; I25.5 Ischemic cardiomyopathy; E11.22 Type 2 diabetes mellitus with diabetic chronic kidney disease; E11.42 Type 2 diabetes mellitus with diabetic polyneuropathy; E78.5 Hyperlipidemia, unspecified; D63.1 Anemia in chronic kidney disease; I25.10 Atherosclerotic heart disease of native coronary artery without angina pectoris; Z99.2 Dependence on renal dialysis; F32.9 Major depressive disorder, single episode, unspecified; T45.526A Underdosing of antithrombotic drugs, initial encounter; Z91.128 Patient's intentional underdosing of medication regimen for other reason; R63.4 Abnormal weight loss; Z87.442 Personal history of urinary calculi; Z95.5 Presence of coronary angioplasty implant and graft; Z79.4 Long term (current) use of insulin; Z86.010 Personal history of colon polyps